=== PATIENT | female | born 1985 | race Caucasian/White ===

== ENCOUNTER 2023-08-08 18:36 | Emergency (ER) | payer OTHER ==
[2023-08-08 18:50] VITALS: TEMP 99
[2023-08-08] MEDS ORDERED: BABY ASPIRIN 81 MG CHEW ONE (19:00)
[2023-08-08] MEDS: BABY ASPIRIN 81 MG CHEW PO ONE (19:01)
[2023-08-08 19:04] LABS: BASOPHIL % 0.6 % (0.1-1.2); Basophil (Absolute #) 0.04 x10^3/uL (0.01-0.08); Eosinophil % 1.9 % (0.7-5.8); Eosinophil (Absolute #) 0.13 x10^3/uL (0.04-0.36); Hematocrit 35.2 % (34.1-44.9); Hemoglobin 12.3 g/dL (11.2-15.7); IMMATURE GRAN # 0.01 x10^3u/L (0.001-0.031); IMMATURE GRAN % 0.1 % (0.001-0.429); Lymphocyte (Absolute #) 2.14 x10^3/uL (1.18-3.74); Lymphocytes % 31.5 % (19.3-51.7); Mean Corpuscular Hemoglobin 31.8 pg (25.6-32.2); Mean Corpuscular Hgb Concent. 34.9 g/dL (32.2-35.5); Mean Platelet Volume 9.6 fL (9.4-12.3); Monocyte (Absolute #) 0.38 x10^3/uL (0.24-0.86); Monocytes % 5.6 % (4.7-12.5); Neutrophil % 60.3 % (34.0-71.1); Platelet Count 293 x10^3/uL (182-369); Red Blood Count 3.87 x10^6/uL (3.93-5.22); Red Cell Distribution Width 12.5 % (11.7-14.4); White Blood Count 6.8 x10^3/uL (3.98-10.04)
[2023-08-08 19:17] LABS: ALBUMIN 4.9 g/dL (3.5-5.0); ANION GAP 14.1 MEQ/L (5-15); BILIRUBIN,TOTAL 0.7 mg/dL (0.2-1.3); Calcium 9.4 mg/dL (8.4-10.2); Creatinine 1 0.79 mg/dL (0.52-1.04); HCG SERUM TEST NEGATIVE (NEGATIVE); Potassium 3.7 mmol/L (3.5-5.1); Total Protein 8.2 g/dL (6.3-8.2)
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
[2023-08-08] MEDS ORDERED: XYLOCAINE VISCOUS 2% 15 ML CUP ONE (20:49)
[2023-08-08] MEDS ORDERED: MAALOX ES 30 ML UNIT DOSE ONE (20:49)
[2023-08-08] MEDS ORDERED: Ativan 2 MG/1 ML VIAL ONE (20:49)
[2023-08-08] MEDS: Ativan 2 MG/1 ML VIAL IV ONE (20:51)
[2023-08-08] MEDS: GI COCKTAIL 45 ML (Maalox/Lidocaine) PO ONE (20:52)
[2023-08-08 22:43] VITALS: O2SAT 100
[2023-08-08 22:47] VITALS: BP 136/92; PULSE 84; RESP 20
--- NOTE | 2023-08-09 08:27 | XRAY ---
Indication: Chest pain. Comparison: April 22, 2008 Portable chest again demonstrates normal heart, lungs, and bony thorax.
== END 2023-08-08 22:52 | disposition home or self-care (01) ==
LOC: ED 18:36
DX: R07.89 Other chest pain (principal); I10 Essential (primary) hypertension; Z79.899 Other long term (current) drug therapy
CPT/HCPCS: 36415; 71045; 80053; 83880; 84484; 84703; 85025; 85379; 96374; 99284; J2060; A9270-GY